=== PATIENT | male | born 1975 | race African-American/Black ===

== ENCOUNTER 2021-07-14 20:40 | Inpatient (IN) | payer SELFPAY ==
[~2021-07-14] VITALS: Ht 172.7 cm; Wt 73.0 kg
[2021-07-14 21:07] LABS: BASO # 0.1 x10^3/uL (0.0-0.2); BASO % 1 % (0-3); EOS # 0.1 x10^3/uL (0.0-0.7); EOS % 1 % (0-3); HEMATOCRIT 43.2 % (39.0-53.0); HEMOGLOBIN 13.7 g/dL (13.0-17.5); LYMPH # 1.6 x10^3/uL (1.0-4.8); LYMPH % 16 % (24-48); MEAN CORPUSCULAR HEMOGLOBIN 24 pg (25-35); MEAN CORPUSCULAR HGB CONC 32 g/dL (31-37); MEAN CORPUSCULAR VOLUME 76 fL (79-100); MONO # 0.9 x10^3/uL (0.0-1.1); MONO % 9 % (0-9); NEUT # 7.5 x10^3/uL (1.8-7.7); NEUT % 74 % (31-73); PLATELET COUNT 238 x10^3/uL (140-400); RED BLOOD COUNT 5.68 x10^6/uL (4.30-5.70); RED CELL DISTRIBUTION WIDTH 15.1 % (11.5-14.5); WHITE BLOOD COUNT 10.2 x10^3/uL (4.0-11.0)
[2021-07-14 21:15] LABS: CALCIUM 9.4 mg/dL (8.5-10.1); CREATININE 1.5 mg/dL (0.7-1.3); GFR 50.6; POTASSIUM 4.2 mmol/L (3.5-5.1)
[2021-07-14 21:21] LABS: ALBUMIN 3.8 g/dL (3.4-5.0); ALBUMIN/GLOBULIN RATIO 0.9 (1.0-1.7); TOTAL BILIRUBIN 0.2 mg/dL (0.2-1.0)
[2021-07-14] MEDS ORDERED: IV NORMAL SALINE 1000ML BAG 1,000 ML IV SCH (21:30)
--- NOTE | 2021-07-14 21:31 | PHYS DOC ---
General Adult EDM: Chief Complaint: NEAR SYNCOPE HPI: HPI: 46-year-old -[place] male past medical history significant for sarcoidosis (takes prednisone and methotrexate daily), presents the ED brought in by EMS after patient had a syncopal episode just prior to arrival while at the [facility]. States he was swimming with his kids for approximately 3 to 4 hours and was about to take a shower when he had sudden onset sweating, shortness of breath, chest pain, attempted to find his inhaler but was stopped when he developed left-sided arm and leg tingling. States his left side gave out and he collapsed to the floor, "it was hard to breath." Is concern for loss of consciousness. Currently in the ED states "I feel like I'm running a race." States he ate barbecue around 3 PM and had 1 beer. States he does not drink alcohol routinely. Denies any IV drug use. Is not a tobacco smoker. Has been vaccinated for COVID. No recent upper respiratory infections. Was diagnosed with sarcoidosis 8 years ago when admitted in [facility] (follows with sugar sampler Dr. Efrain Coyne and Dr. Jeane Pizarro). Is not on any anticoagulants. No history of cardiac arrhythmias, cardiac disease, DVT or PE or syncope. 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 Review of Systems: Review of Systems: Constitutional: Denies fever or chills. [] Eyes: Denies change in visual acuity. [] HENT: Denies nasal congestion or sore throat. [] Respiratory: Denies cough or hemoptysis Cardiovascular: Denies bradycardia or edema. [] GI: Denies abdominal pain, nausea, vomiting, bloody stools or diarrhea. [] : Denies dysuria or hematuria Musculoskeletal: Denies back pain or joint pain. [] Integument: Denies rash or diaphoresis Neurologic: Denies headache or neck pain Endocrine: Denies polyuria or polydipsia. [] Lymphatic: Denies swollen glands. [] Psychiatric: Denies depression or anxiety. [] Heart Score: C/O Chest Pain: Yes HEART Score for Chest Pain: HEART Score for Chest Pain Response (Comments) Value History Slighlty/Non-Suspicious 0 ECG Normal 0 Age >45 - < 65 1 Risk Factors No Risk Factors 0 Troponin < Normal Limit 0 Total 1 Risk Factors: Risk Factors: DM, Current or recent (<one month) smoker, HTN, HLP, family history of CAD, obesity. Risk Scores: Score 0 - 3: 2.5% MACE over next 6 weeks - Discharge Home Score 4 - 6: 20.3% MACE over next 6 weeks - Admit for Clinical Observation Score 7 - 10: 72.7% MACE over next 6 weeks - Early Invasive Strategies Current Medications: Current Medications Medications (Trade) Dose Ordered Sig/Poncho Start Time Stop Time Status Last Admin Dose Admin Diltiazem HCl (Cardizem Iv Push) 20 mg 1X ONCE 07/14/21 21:30 07/14/21 21:31 07/14/21 21:16 20 MG Sodium Chloride 1,000 ml @ 1,000 mls/hr Q1H 07/14/21 21:30 07/14/21 22:29 07/14/21 21:16 1,000 MLS/HR Allergies: Allergies: Allergies Coded Allergies Type Severity Reaction Last Updated Verified No Known Drug Allergies 07/14/21 No Physical Exam: PE: Constitutional: Well developed, well nourished, no acute distress, non-toxic appearance, physically fit male HENT: Normocephalic, atraumatic, slightly dry mucous membranes Eyes: Pupils equal and reactive, EOMI, conjunctiva normal, no discharge. Neck: Normal range of motion, supple, Nexus C-spine criteria are negative: There is no post midline tenderness, the patient is not intoxicated, there is a normal level of alertness, there are no focal neurologic deficits and there are no distracting injuries Cardiovascular: S1/2 present, irregular rhythm/tachycardic Lungs & Thorax: Speaking in full sentences, bilateral equal chest rise, no tachypnea or increased work of breathing Abdomen: soft, no tenderness, Skin: Warm, dry, no erythema, no rash. [] Back: No midline spinal step-offs or tenderness, no CVA tenderness. [] Extremities: No tenderness, no cyanosis, no unilateral lower extremity edema Neurologic: GCS 15, alert and oriented X 3, normal motor function, normal sensory function, no focal deficits noted. [] Psychologic: Affect normal, judgement normal, mood normal. [] Current Patient Data: Labs: Laboratory Tests Test 07/14/21 20:55 White Blood Count 10.2 x10^3/uL (4.0-11.0) Red Blood Count 5.68 x10^6/uL (4.30-5.70) Hemoglobin 13.7 g/dL (13.0-17.5) Hematocrit 43.2 % (39.0-53.0) Mean Corpuscular Volume 76 fL (79-100) L Mean Corpuscular Hemoglobin 24 pg (25-35) L Mean Corpuscular Hemoglobin Concent 32 g/dL (31-37) Red Cell Distribution Width 15.1 % (11.5-14.5) H Platelet Count 238 x10^3/uL (140-400) Neutrophils (%) (Auto) 74 % (31-73) H Lymphocytes (%) (Auto) 16 % (24-48) L Monocytes (%) (Auto) 9 % (0-9) Eosinophils (%) (Auto) 1 % (0-3) Basophils (%) (Auto) 1 % (0-3) Neutrophils # (Auto) 7.5 x10^3/uL (1.8-7.7) Lymphocytes # (Auto) 1.6 x10^3/uL (1.0-4.8) Monocytes # (Auto) 0.9 x10^3/uL (0.0-1.1) Eosinophils # (Auto) 0.1 x10^3/uL (0.0-0.7) Basophils # (Auto) 0.1 x10^3/uL (0.0-0.2) Sodium Level 142 mmol/L (136-145) Potassium Level 4.2 mmol/L (3.5-5.1) Chloride Level 106 mmol/L (98-107) Carbon Dioxide Level 29 mmol/L (21-32) Anion Gap 7 (6-14) Blood Urea Nitrogen 14 mg/dL (8-26) Creatinine 1.5 mg/dL (0.7-1.3) H Estimated GFR (Cockcroft-Gault) 50.6 BUN/Creatinine Ratio 9 (6-20) Glucose Level 102 mg/dL (70-99) H Calcium Level 9.4 mg/dL (8.5-10.1) Magnesium Level Pending Total Bilirubin Pending Aspartate Amino Transferase (AST) Pending Alanine Aminotransferase (ALT) Pending Alkaline Phosphatase Pending Total Protein Pending Albumin Pending Albumin/Globulin Ratio Pending Laboratory Tests 07/14/21 20:55 Laboratory Tests 07/14/21 20:55 Vital Signs: Vital Signs Date Time Temp Pulse Resp B/P (MAP) Pulse Ox O2 Delivery O2 Flow Rate FiO2 07/14/21 21:16 154 103/85 EKG: EK atrial fibrillation in RVR at 145 bpm, no axis deviation, QTC 447, PVCs present, no obvious T wave inversions, ST elevations or ST depressions Radiology/Procedures: Radiology/Procedures: IMAGING REPORT Signed PATIENT: ARLETH GONZALES ACCOUNT: [id number] : 1975 LOCATION: ER AGE: 46 SEX: M EXAM STATUS: PRE ER ORD. PHYSICIAN: JULIANA BROWN DO REASON: cp/soa, near syncope PROCEDURE: CT HEAD AND CERVICAL SPINE WO Exam: CT head and cervical spine without contrast INDICATION: Chest pain, short of air TECHNIQUE: Sequential axial images through the head and cervical spine were obtained without the administration of IV contrast. Exposure: One or more of the following in the visualized dose reduction techniques were utilized for this examination: 1. Automated exposure control 2. Adjustment of the MA and/or KV according to patient size 3. Use of iterative of reconstructive technique Comparisons: None FINDINGS: Head: No focal parenchymal lesion or hemorrhage is identified. There is no midline shift or sulcal effacement. No acute vascular territory infarction is identified. Tanner-white distinction is preserved. The ventricular system is within normal limits without compression hydrocephalus. The basal cisterns are well maintained. The visualized portions of the paranasal sinuses and mastoid air cells are well- pneumatized. No acute fractures. Cervical spine: Vertebral body heights and alignment are well-maintained. Fracture to the cervical spine is not identified. No significant spondylotic change in cervical spine. Linear bandlike scarring at the lung apices. No pleural effusion. IMPRESSION: 1. No acute intracranial abnormality. 2. Negative CT C-spine for acute traumatic injury Electronically signed by: Gregg Cotter MD (07/14/2021 9:44 PM) [facility] DICTATED and SIGNED BY: GREGG COTTER MD DATE: 07/14/[id number] 0 IMAGING REPORT Signed PATIENT: ARLETH GONZALES ACCOUNT: [id number] : 1975 LOCATION: ER AGE: 46 SEX: M EXAM STATUS: PRE ER ORD. PHYSICIAN: JULIANA BROWN DO REASON: cp/soa PROCEDURE: PORTABLE CHEST 1V EXAMINATION: XR CHEST 1V CLINICAL HISTORY: Chest pain, shortness of breath. EXAM DATE/TIME: 07/14/2021 9:13 PM COMPARISON: None FINDINGS: Lines, Tubes, and Devices: None. Cardiomediastinal Silhouette: Normal heart size. Lungs and Pleura: 3.6 cm focal opacity in the right upper lung zone. Bilateral multifocal curvilinear and interstitial opacities. No pleural effusion or pneum othorax. Old calcified granulomatous disease. Bones and Soft Tissues: No acute osseous abnormality. IMPRESSION: Nonacute changes in the bilateral lungs, refer to subsequent CTA chest for further details. Electronically signed by: Gonzalez Cevallos DO (07/14/2021 9:46 PM) [facility] DICTATED and SIGNED BY: GONZALEZ CEVALLOS DO DATE: 07/14/[id number] 0 IMAGING REPORT Signed PATIENT: ARLETH GONZALES ACCOUNT: [id number] : 1975 LOCATION: ER AGE: 46 SEX: M EXAM STATUS: PRE ER ORD. PHYSICIAN: JULIANA BROWN DO REASON: cp/soa, near syncope PROCEDURE: CT ANGIOGRAPHY CHEST Exam: CT of chest with contrast INDICATION: Chest pain, short of air TECHNIQUE: Sequential axial images through the chest obtained following the administration of 90 mL of Isovue-370 IV contrast. Sagittal and coronal reformatted images were reconstructed from the axial data and reviewed. Exposure: One or more of the following in the visualized dose reduction techniques were utilized for this examination: 1. Automated exposure control 2. Adjustment of the MA and/or KV according to patient size 3. Use of iterative of reconstructive technique Comparisons: None FINDINGS: Visualized portions of the thyroid are unremarkable. No enlarged mediastinal ly mph nodes. Heart size is normal. No pericardial effusion. Thoracic aorta has normal course and caliber. Pulmonary artery is not enlarged. No pulmonary embolus identified within the main, lobar or segmental pulmonary arteries. Airways are patent. Cavitary lesions noted at the upper lobes bilaterally with internal discrete mass at the right upper lobe inside one of these cavitary areas. Bronchial wall thickening is also noted. No pneumothorax. No pleural effusion or thickening. Visualized upper abdomen is unremarkable. No suspicious osseous lesions or acute fractures. IMPRESSION: 1. No pulmonary embolus identified within the main, lobar or segmental pulmonary arteries. 2. Cystic areas at the upper lobes bilaterally with internal mass within one of these cysts could represent a fungus ball. Correlate for atypical infectious processes. Electronically signed by: Gregg Cotter MD (07/14/2021 9:50 PM) [facility] DICTATED and SIGNED BY: GREGG COTTER MD DATE: 07/14/21 [id number] 0 Course & Med Decision Making: Course & Med Decision Making Pertinent Labs and Imaging studies reviewed. (See chart for details) Concern for syncope in the setting of new onset atrial fibrillation and rapid ventricular rate. Patient also with renal insufficiency-no prior history of renal disease. CT of the chest did not reveal any pulmonary embolus but does show multiple cystic lesions which could represent fungus ball vs known sarcoidosis. Patient requiring a Cardizem drip. When heart rate is tachycardic patient complains of palpitations described as " I feel like I am running." Will admit for further medical management with cardiology and pulmonology consulted. Patient stable at time of admission and agrees with this plan. I have spoken with the patient and/or caregivers. I have explained the patient's condition, diagnosis and treatment plan based on the information available to me at this time. I have answered the patient's and/or caregivers questions and answered any concerns. The patient and/or caregivers have as good an understanding of the patient's diagnosis, condition and treatment plan as can be expected at this point. The patient has been stabilized within the capability of the emergency department. The patient will be transported for further care and management or will be moved to an observation or inpatient service. I have communicated with the staff or medical practitioner taking over this patient's care. Critical Care: Authorized and Performed by: Juliana Brown DO Total critical care time: approximately 45 minutes Due to a high probability of clinically significant, life threatening deterioration, the patient required my highest level of preparedness to intervene emergently and I personally spent this critical care time directly and personally managing the patient. This critical care time included obtaining a history; examining the patient; pulse oximetry; ventilator management if necessary; ordering and review of studies; arranging urgent treatment with development of a management plan; evaluation of patient's response to treatment; frequent reassessment; discussion with patient/family; and, discussions with other providers. This critical care time was performed to assess and manage the high probability of imminent, life-threatening deterioration that could result in multi-organ failure. It was exclusive of separately billable procedures and treating other patients and teaching time. Please see MDM section and the rest of the note for further information on patient assessment and treatment. Dragon Disclaimer: Dragon Disclaimer: This electronic medical record was generated, in whole or in part, using a voice recognition dictation system. Departure Departure Impression: Primary Impression: Syncope and collapse Additional Impressions: New onset atrial fibrillation Renal insufficiency Sarcoidosis Disposition: ADMITTED INPATIENT Admitting Physician: ANTONIO (Dr. Longo) Condition: STABLE JULIANA BROWN DO Jul 14, 2021 21:31
[2021-07-14 21:41] LABS: AMPHETAMINE/METHAMPHETAMINE NEG (NEG); BARBITURATES NEG (NEG); BENZODIAZEPINES NEG (NEG); CANNABINOIDS POS (NEG); COCAINE NEG (NEG); METHADONE NEG (NEG); OPIATES NEG (NEG); PHENCYCLIDINE NEG (NEG)
[2021-07-14] MEDS ORDERED: CONTRAST GIVEN. MC PRN (21:45)
--- NOTE | 2021-07-14 21:47 | RAD ---
Exam: CT head and cervical spine without contrast INDICATION: Chest pain, short of air TECHNIQUE: Sequential axial images through the head and cervical spine were obtained without the admi nistration of IV contrast. Exposure: One or more of the following in the visualized dose reduction techniques were utilized for this examination: 1. Automated exposure control 2. Adjustment of the MA and/or KV according to patient size 3. Use of iterative of reconstructive technique Comparisons: None FINDINGS: Head: No focal parenchymal lesion or hemorrhage is identified. There is no midline shift or sulcal effaceme nt. No acute vascular territory infarction is identified. Tanner-white distinction is preserved. The ventricular system is within normal limits without compression hydrocephalus. The basal cisterns are well maintained. The visualized portions of the paranasal sinuses and mastoid air cells are well-pneumatized. No acute fractures. Cervical spine: Vertebral body heights and alignment are well-maintained. Fracture to the cervical spine is not identified. No significant spondylotic change in cervical spine. Linear bandlike scarring at the lung apices. No pleural effusion. IMPRESSION: 1. No acute intracranial abnormality. 2. Negative CT C-spine for acute traumatic injury Electronically signed by: Gregg Littlejohn MD (07/14/2021 9:44 PM) [facility]
--- NOTE | 2021-07-14 21:48 | RAD ---
EXAMINATION: XR CHEST 1V CLINICAL HISTORY: Chest pain, shortness of breath. EXAM DATE/TIME: 07/14/2021 9:13 PM COMPARISON: None FINDINGS: Lines, Tubes, and Devices: None. Cardiomediastinal Silhouette: Normal heart size. Lungs and Pleura: 3.6 cm focal opacity in the right upper lung zone. Bilateral multifocal curvilinear and interstitial opacities. No pleural effusion or pneumothorax. Old calcified granulomatous disease . Bones and Soft Tissues: No acute osseous abnormality. IMPRESSION: Nonacute changes in the bilateral lungs, refer to subsequent CTA chest for further details. Electronically signed by: Gonzalez Esquivel DO (07/14/2021 9:46 PM) [facility]
--- NOTE | 2021-07-14 21:53 | RAD ---
Exam: CT of chest with contrast INDICATION: Chest pain, short of air TECHNIQUE: Sequential axial images through the chest obtained following the administration of 90 mL o f Isovue-370 IV contrast. Sagittal and coronal reformatted images were reconstructed from the axial d quentin and reviewed. Exposure: One or more of the following in the visualized dose reduction techniques were utilized for this examination: 1. Automated exposure control 2. Adjustment of the MA and/or KV according to patient size 3. Use of iterative of reconstructive technique Comparisons: None FINDINGS: Visualized portions of the thyroid are unremarkable. No enlarged mediastinal lymph nodes. Heart size is normal. No pericardial effusion. Thoracic aorta has normal course and caliber. Pulmonar y artery is not enlarged. No pulmonary embolus identified within the main, lobar or segmental pulmona ry arteries. Airways are patent. Cavitary lesions noted at the upper lobes bilaterally with internal discrete mass at the right upper lobe inside one of these cavitary areas. Bronchial wall thickening is also noted. No pneumothorax. No pleural effusion or thickening. Visualized upper abdomen is unremarkable. No suspicious osseous lesions or acute fractures. IMPRESSION: 1. No pulmonary embolus identified within the main, lobar or segmental pulmonary arteries. 2. Cystic areas at the upper lobes bilaterally with internal mass within one of these cysts could re present a fungus ball. Correlate for atypical infectious processes. Electronically signed by: Gregg Littlejohn MD (07/14/2021 9:50 PM) [facility]
[2021-07-14] MEDS ORDERED: IOHEXOL 350 MG/ML 100 ML VIAL. IV ONE (22:00)
[2021-07-14] MEDS ORDERED: dilTIAZem HCL 125 MG in IV DEXTROSE 5% 100ML 100 ML IV ONE (23:00)
[2021-07-14 23:30] VITALS: BP 115/65
[2021-07-15] MEDS ORDERED: HEPARIN 25,000UTS/250ML PREMIX 250 ML IV PRN (00:30)
[2021-07-15] MEDS ORDERED: HEPARIN for IV BOLUS 10,000 UNIT/10 ML VIAL. IV PRN (00:30)
[2021-07-15] MEDS: ANTI-COAG MONITOR BY PHARMACY. MC PRN ×2 (01:32→09:34)
[2021-07-15 03:36] VITALS: BP 116/62
--- NOTE | 2021-07-15 04:02 | EKG ---
[facility] [address] [place] [address] Test Date: 2021-07-14 Test Time: 20:46:37 Pat Name: ARLETH GONZALES Department: Room: Gender: M Post Closer: : 1975 Requested By: AMRIT BROWN Order Number: [id number] Reading MD: Measurements Intervals [place] Rate: 145 P: OR: QRS: 61 QRSD: 76 T: 59 QT: 284 QTc: 444 Interpretive Statements IRREGULAR RHYTHM, NO P-WAVE FOUND VENTRICULAR PREMATURE COMPLEX(ES) ABNORMAL ECG RI6.02 No previous ECG available for comparison
[2021-07-15] MEDS ORDERED: dilTIAZem HCL 125 MG in IV DEXTROSE 5% 100ML 100 ML IV PRN (05:30)
[2021-07-15] MEDS ORDERED: PRED20TA PO (05:46)
[2021-07-15] MEDS ORDERED: METH2.5T PO (05:46)
[2021-07-15 07:00] VITALS: BP 107/64
[2021-07-15 09:00] LABS: CHOLESTEROL/HDL RATIO 2.5
--- NOTE | 2021-07-15 10:33 | PDOC1 ---
History and Physical Date of Service: DOS: DATE: 07/15/21 TIME: 10:32 Chief Complaint: Chief Complain: irregular heartbeat History of Present Illness: HPI: 46-year-old -[place] male past medical history significant for sarcoidosis (takes prednisone and methotrexate daily), presents the ED brought in by EMS after patient had a syncopal episode just prior to arrival while at the [facility]. States he was swimming with his kids for approximately 3 to 4 hours and was about to take a shower when he had sudden onset sweating, shortness of breath, chest pain, attempted to find his inhaler but was stopped when he developed left-sided arm and leg tingling. States his left side gave out and he collapsed to the floor, "it was hard to breath." Is concern for loss of consciousness. Currently in the ED states "I feel like I'm running a race." States he ate barbecue around 3 PM and had 1 beer. States he does not drink alcohol routinely. Denies any IV drug use. Is not a tobacco smoker. Has been vaccinated for COVID. No recent upper respiratory infections. Was diagnosed with sarcoidosis 8 years ago when admitted in [facility] (follows with research worker kitchen Dr. Efrain Coyne and Dr. Jeane Pizarro). Is not on any anticoagulants. No history of cardiac arrhythmias, cardiac disease, DVT or PE or syncope. 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 Past Medical/Surgical History: PMH/PSH: Sarcoidosis Allergies: Allergies: Coded Allergies: No Known Drug Allergies (Unverified , 07/14/21) Family History: Family History: no known per patient Social History: Social History: Denies alcohol, tobacco, drug use Current Medications: Current Medications Current Medications Diltiazem HCl (Cardizem Iv Push) 20 mg 1X ONCE IVP Last administered on 07/14/21at 21:16; Start 07/14/21 at 21:30; Stop 07/14/21 at 21:31; Status DC Sodium Chloride 1,000 ml @ 1,000 mls/hr Q1H IV Last administered on 07/14/21at 21:16; Start 07/14/21 at 21:30; Stop 07/14/21 at 22:29; Status DC Iohexol (Omnipaque 350 Mg/ml) 90 ml 1X ONCE IV Last administered on 07/14/21at 21:34; Start 07/14/21 at 22:00; Stop 07/14/21 at 22:01; Status DC Info (CONTRAST GIVEN -- Rx MONITORING) 1 each PRN DAILY PRN MC SEE COMMENTS; Start 07/14/21 at 21:45; Stop 07/16/21 at 21:44 Diltiazem HCl 125 mg/Dextrose 125 ml @ 5 mls/hr 1X ONCE IV Last administered on 07/14/21at 22:38; Start 07/14/21 at 23:00; Stop 07/15/21 at 09:33; Status DC Heparin Sodium/ Dextrose 250 ml @ 8.76 mls/hr CONT PRN IV PER PROTOCOL Last administered on 07/15/21at 01:07; Start 07/15/21 at 00:30 Heparin Sodium (Porcine) (Heparin Sodium) 1,850 unit PRN Q6HRS PRN IV FOR UFH LEVEL LESS THAN 0.2 Last administered on 07/15/21at 08:12; Start 07/15/21 at 00:30 Info (Anti-Coagulation Monitoring By Pharmacy) 1 each PRN DAILY PRN MC PER PROTOCOL Last administered on 07/15/21at 09:34; Start 07/15/21 at 00:45 Diltiazem HCl 125 mg/Dextrose 125 ml @ 5 mls/hr CONT PRN PRN IV AFIB Last administered on 07/15/21at 06:11; Start 07/15/21 at 05:30 Active Scripts Active Reported Methotrexate (Methotrexate Sodium) 2.5 Mg Tablet Unknown Dose PO WEEKLY Prednisone 20 Mg Tablet 1 Tab PO DAILY ROS: Review of Systems Review of System 14pt ROS negative Unless noted in HPI Physical Exam: Vital Signs: Vital Signs Date Time Temp Pulse Resp B/P (MAP) Pulse Ox O2 Delivery O2 Flow Rate FiO2 07/15/21 07:00 98.0 60 18 107/64 (78) 97 Room Air 98.0 Physcial Exam: GEN: No apparent distress. Alert and oriented HEENT: Normal cephalic, atraumatic, external auditory canals are patent EYES: Extraocular muscles are intact, pupil are equally round and reactive to light and accommodation MUSCULOSKELETAL: Well developed , well nourished, good range of motion ENDOCRINE: No thyromegaly was palpated LYMPHATICS: No cervical chain or axillary nodes were noted HEMATOPOIETIC: No bruising NECK: Supple, no JVD, no thyromegaly was noted LUNGS: Clear to auscultation in all lung galvan without rhonchi or wheezing HEART: RRR, S!, S2 present. Peripheral pulses intact, no obvious murmurs noted ABDOMEN: Soft, nontender. Positive bowel sounds, no organomegaly, normal b owel sounds EXTREMITIES: Without clubbing, cyanosis, or edema. Pedal pulses intact. Negative Homans sign NEUROLOGIC: Normal speech and tone. A&O x 3, moves all extremities, no obvious focal deficits PSYCHIATRIC: Normal affect, normal mood. Stable SKIN: No ulcerations or rashes, good skin turgor, no jaundice VASCULAR: Good capillary refill, neurovascular bundle appears to be intact Labs: Labs: Laboratory Tests Test 07/14/21 20:18 07/14/21 20:55 07/14/21 23:50 07/15/21 03:05 Urine Opiates Screen Neg (NEG) Urine Methadone Screen Neg (NEG) Urine Barbiturates Neg (NEG) Urine Phencyclidine Screen Neg (NEG) Urine Amphetamine/Methamphetamine Neg (NEG) Urine Benzodiazepines Screen Neg (NEG) Urine Cocaine Screen Neg (NEG) Urine Cannabinoids Screen Pos (NEG) Urine Ethyl Alcohol Neg (NEG) White Blood Count 10.2 x10^3/uL (4.0-11.0) Red Blood Count 5.68 x10^6/uL (4.30-5.70) Hemoglobin 13.7 g/dL (13.0-17.5) Hematocrit 43.2 % (39.0-53.0) Mean Corpuscular Volume 76 fL (79-100) Mean Corpuscular Hemoglobin 24 pg (25-35) Mean Corpuscular Hemoglobin Concent 32 g/dL (31-37) Red Cell Distribution Width 15.1 % (11.5-14.5) Platelet Count 238 x10^3/uL (140-400) Neutrophils (%) (Auto) 74 % (31-73) Lymphocytes (%) (Auto) 16 % (24-48) Monocytes (%) (Auto) 9 % (0-9) Eosinophils (%) (Auto) 1 % (0-3) Basophils (%) (Auto) 1 % (0-3) Neutrophils # (Auto) 7.5 x10^3/uL (1.8-7.7) Lymphocytes # (Auto) 1.6 x10^3/uL (1.0-4.8) Monocytes # (Auto) 0.9 x10^3/uL (0.0-1.1) Eosinophils # (Auto) 0.1 x10^3/uL (0.0-0.7) Basophils # (Auto) 0.1 x10^3/uL (0.0-0.2) Sodium Level 142 mmol/L (136-145) Potassium Level 4.2 mmol/L (3.5-5.1) Chloride Level 106 mmol/L (98-107) Carbon Dioxide Level 29 mmol/L (21-32) Anion Gap 7 (6-14) Blood Urea Nitrogen 14 mg/dL (8-26) Creatinine 1.5 mg/dL (0.7-1.3) Estimated GFR (Cockcroft-Gault) 50.6 BUN/Creatinine Ratio 9 (6-20) Glucose Level 102 mg/dL (70-99) Calcium Level 9.4 mg/dL (8.5-10.1) Magnesium Level 2.0 mg/dL (1.8-2.4) Total Bilirubin 0.2 mg/dL (0.2-1.0) Aspartate Amino Transf (AST/SGOT) 19 U/L (15-37) Alanine Aminotransferase (ALT/SGPT) 18 U/L (16-63) Alkaline Phosphatase 70 U/L (46-116) Troponin I High Sensitivity 26 ng/L (4-75) 267 ng/L (4-75) 160 ng/L (4-75) AC-Kld-X-Type Natriuretic Peptide 98 pg/mL (0-124) Total Protein 8.0 g/dL (6.4-8.2) Albumin 3.8 g/dL (3.4-5.0) Albumin/Globulin Ratio 0.9 (1.0-1.7) Triglycerides Level 47 mg/dL (0-150) Cholesterol Level 224 mg/dL (0-200) LDL Cholesterol, Calculated 127 mg/dL (0-100) VLDL Cholesterol, Calculated 9 mg/dL (0-40) Non-HDL Cholesterol Calculated 136 mg/dL (0-129) HDL Cholesterol 88 mg/dL (40-60) Cholesterol/HDL Ratio 2.5 Thyroid Stimulating Hormone (TSH) 1.816 uIU/mL (0.358-3.74) Test 07/15/21 07:00 Heparin Anti-Xa Act, Unfractionated 0.13 IU/mL (0.30-0.70) Laboratory Tests Test 07/14/21 20:18 07/14/21 20:55 07/14/21 23:50 07/15/21 03:05 Urine Opiates Screen Neg (NEG) Urine Methadone Screen Neg (NEG) Urine Barbiturates Neg (NEG) Urine Phencyclidine Screen Neg (NEG) Urine Amphetamine/Methamphetamine Neg (NEG) Urine Benzodiazepines Screen Neg (NEG) Urine Cocaine Screen Neg (NEG) Urine Cannabinoids Screen Pos (NEG) Urine Ethyl Alcohol Neg (NEG) White Blood Count 10.2 x10^3/uL (4.0-11.0) Red Blood Count 5.68 x10^6/uL (4.30-5.70) Hemoglobin 13.7 g/dL (13.0-17.5) Hematocrit 43.2 % (39.0-53.0) Mean Corpuscular Volume 76 fL (79-100) Mean Corpuscular Hemoglobin 24 pg (25-35) Mean Corpuscular Hemoglobin Concent 32 g/dL (31-37) Red Cell Distribution Width 15.1 % (11.5-14.5) Platelet Count 238 x10^3/uL (140-400) Neutrophils (%) (Auto) 74 % (31-73) Lymphocytes (%) (Auto) 16 % (24-48) Monocytes (%) (Auto) 9 % (0-9) Eosinophils (%) (Auto) 1 % (0-3) Basophils (%) (Auto) 1 % (0-3) Neutrophils # (Auto) 7.5 x10^3/uL (1.8-7.7) Lymphocytes # (Auto) 1.6 x10^3/uL (1.0-4.8) Monocytes # (Auto) 0.9 x10^3/uL (0.0-1.1) Eosinophils # (Auto) 0.1 x10^3/uL (0.0-0.7) Basophils # (Auto) 0.1 x10^3/uL (0.0-0.2) Sodium Level 142 mmol/L (136-145) Potassium Level 4.2 mmol/L (3.5-5.1) Chloride Level 106 mmol/L (98-107) Carbon Dioxide Level 29 mmol/L (21-32) Anion Gap 7 (6-14) Blood Urea Nitrogen 14 mg/dL (8-26) Creatinine 1.5 mg/dL (0.7-1.3) Estimated GFR (Cockcroft-Gault) 50.6 BUN/Creatinine Ratio 9 (6-20) Glucose Level 102 mg/dL (70-99) Calcium Level 9.4 mg/dL (8.5-10.1) Magnesium Level 2.0 mg/dL (1.8-2.4) Total Bilirubin 0.2 mg/dL (0.2-1.0) Aspartate Amino Transf (AST/SGOT) 19 U/L (15-37) Alanine Aminotransferase (ALT/SGPT) 18 U/L (16-63) Alkaline Phosphatase 70 U/L (46-116) Troponin I High Sensitivity 26 ng/L (4-75) 267 ng/L (4-75) 160 ng/L (4-75) ON-Qyc-W-Type Natriuretic Peptide 98 pg/mL (0-124) Total Protein 8.0 g/dL (6.4-8.2) Albumin 3.8 g/dL (3.4-5.0) Albumin/Globulin Ratio 0.9 (1.0-1.7) Triglycerides Level 47 mg/dL (0-150) Cholesterol Level 224 mg/dL (0-200) LDL Cholesterol, Calculated 127 mg/dL (0-100) VLDL Cholesterol, Calculated 9 mg/dL (0-40) Non-HDL Cholesterol Calculated 136 mg/dL (0-129) HDL Cholesterol 88 mg/dL (40-60) Cholesterol/HDL Ratio 2.5 Thyroid Stimulating Hormone (TSH) 1.816 uIU/mL (0.358-3.74) Test 07/15/21 07:00 Heparin Anti-Xa Act, Unfractionated 0.13 IU/mL (0.30-0.70) Assessment/Plan Assessment/Plan A. fib with RVR. History sarcoidosis -1 day history irregular heartbeat. Currently on vacation at [facility] -Presented emergency room found to be in A. fib with RVR started on Cardizem drip overnight -Transition to metoprolol. Cardizem drip, heparin d/c -Echo results pending. -If does okay with metoprolol dose can discharge this afternoon. -Cardiology already evaluated. -Discussed with bedside RN Justifications for Admission Other Justification PHILIP BISHOP MD Jul 15, 2021 10:33
--- NOTE | 2021-07-15 11:06 | PDOC2 ---
YELENA RAO AIRCRAFT ARMORER 07/15/21 1106: CARDIAC CONSULT DATE OF CONSULT Date of Consult DATE: 07/15/21 TIME: 10:57 REASON FOR CONSULT Reason for Consult: Syncope, AFIB RVR REFERRING PHYSICIAN Referring Physician: Candido SOURCE Source: Chart review, Patient HISTORY OF PRESENT ILLNESS HISTORY OF PRESENT ILLNESS This is a pleasant 46 yo male admitted for complains of passing out. Reports that he was at [place] and just got done swimming and was getting ready to have dinner when he elt SOA and was having palpitations and felt flushed. No chest pain per se but felt like he just ran. No nausea or vomiting. No recent fever or chills. This is the first time this happened to him. No hx of arrhythmias. No cardiac hx. PAST MEDICAL HISTORY Pulmonary: Other (sarcoidosis) Heme/Onc: Other (chronic immunosuppresion) PAST SURGICAL HISTORY Past Surgical History: No pertinent history FAMILY HISTORY Family History: Diabetes SOCIAL HISTORY Smoke: No ALCOHOL: rare Drugs: None Lives: with Family CURRENT MEDICATIONS CURRENT MEDICATIONS Current Medications Medications (Trade) Dose Ordered Sig/Poncho Route PRN Reason Start Time Stop Time Status Last Admin Dose Admin Diltiazem HCl (Cardizem Iv Push) 20 mg 1X ONCE IVP 07/14/21 21:30 07/14/21 21:31 DC 07/14/21 21:16 Sodium Chloride 1,000 ml @ 1,000 mls/hr Q1H IV 07/14/21 21:30 07/14/21 22:29 DC 07/14/21 21:16 Iohexol (Omnipaque 350 Mg/ml) 90 ml 1X ONCE IV 07/14/21 22:00 07/14/21 22:01 DC 07/14/21 21:34 Diltiazem HCl 125 mg/Dextrose 125 ml @ 5 mls/hr 1X ONCE IV 07/14/21 23:00 07/15/21 09:33 DC 07/14/21 22:38 Heparin Sodium/ Dextrose 250 ml @ 8.76 mls/hr CONT PRN IV PER PROTOCOL 07/15/21 00:30 07/15/21 01:07 Heparin Sodium (Porcine) (Heparin Sodium) 1,850 unit PRN Q6HRS PRN IV FOR UFH LEVEL LESS THAN 0.2 07/15/21 00:30 07/15/21 08:12 Info (Anti-Coagulation Monitoring By Pharmacy) 1 each PRN DAILY PRN MC PER PROTOCOL 07/15/21 00:45 07/15/21 09:34 Diltiazem HCl 125 mg/Dextrose 125 ml @ 5 mls/hr CONT PRN PRN IV AFIB 07/15/21 05:30 07/15/21 06:11 ALLERGIES ALLERGIES: Coded Allergies: No Known Drug Allergies (Unverified , 07/14/21) ROS Review of System 14 point ROS evaluated with pertinent positives noted per HPI PHYSICAL EXAM General: Alert, Oriented X3, Cooperative, No acute distress HEENT: Atraumatic, Mucous membr. moist/pink Lungs: Clear to auscultation, Normal air movement Heart: Regular rate (SR), Normal S1, Normal S2, No murmurs Abdomen: Soft, No tenderness Extremities: No cyanosis, No edema Skin: No breakdown, No significant lesion Neuro: Normal speech, Strength at 5/5 X4 ext, Sensation intact Psych/Mental Status: Mood NL MUSCULOSKELETAL: Full range of motion without pain VITALS/I&O VITALS/I&O: Vital Signs Date Time Temp Pulse Resp B/P (MAP) Pulse Ox O2 Delivery O2 Flow Rate FiO2 07/15/21 07:00 98.0 60 18 107/64 (78) 97 Room Air 98.0 I & O 07/14/21 07/14/21 07/15/21 15:00 23:00 07:00 Intake Total 2052 ml Output Total 550 ml Balance 1502 ml LABS Lab: Laboratory Tests Test 07/14/21 20:18 07/14/21 20:55 07/14/21 23:50 07/15/21 03:05 Urine Opiates Screen Neg (NEG) Urine Methadone Screen Neg (NEG) Urine Barbiturates Neg (NEG) Urine Phencyclidine Screen Neg (NEG) Urine Amphetamine/Methamphetamine Neg (NEG) Urine Benzodiazepines Screen Neg (NEG) Urine Cocaine Screen Neg (NEG) Urine Cannabinoids Screen Pos (NEG) Urine Ethyl Alcohol Neg (NEG) White Blood Count 10.2 x10^3/uL (4.0-11.0) Red Blood Count 5.68 x10^6/uL (4.30-5.70) Hemoglobin 13.7 g/dL (13.0-17.5) Hematocrit 43.2 % (39.0-53.0) Mean Corpuscular Volume 76 fL (79-100) L Mean Corpuscular Hemoglobin 24 pg (25-35) L Mean Corpuscular Hemoglobin Concent 32 g/dL (31-37) Red Cell Distribution Width 15.1 % (11.5-14.5) H Platelet Count 238 x10^3/uL (140-400) Neutrophils (%) (Auto) 74 % (31-73) H Lymphocytes (%) (Auto) 16 % (24-48) L Monocytes (%) (Auto) 9 % (0-9) Eosinophils (%) (Auto) 1 % (0-3) Basophils (%) (Auto) 1 % (0-3) Neutrophils # (Auto) 7.5 x10^3/uL (1.8-7.7) Lymphocytes # (Auto) 1.6 x10^3/uL (1.0-4.8) Monocytes # (Auto) 0.9 x10^3/uL (0.0-1.1) Eosinophils # (Auto) 0.1 x10^3/uL (0.0-0.7) Basophils # (Auto) 0.1 x10^3/uL (0.0-0.2) Sodium Level 142 mmol/L (136-145) Potassium Level 4.2 mmol/L (3.5-5.1) Chloride Level 106 mmol/L (98-107) Carbon Dioxide Level 29 mmol/L (21-32) Anion Gap 7 (6-14) Blood Urea Nitrogen 14 mg/dL (8-26) Creatinine 1.5 mg/dL (0.7-1.3) H Estimated GFR (Cockcroft-Gault) 50.6 BUN/Creatinine Ratio 9 (6-20) Glucose Level 102 mg/dL (70-99) H Calcium Level 9.4 mg/dL (8.5-10.1) Magnesium Level 2.0 mg/dL (1.8-2.4) Total Bilirubin 0.2 mg/dL (0.2-1.0) Aspartate Amino Transferase (AST) 19 U/L (15-37) Alanine Aminotransferase (ALT) 18 U/L (16-63) Alkaline Phosphatase 70 U/L (46-116) Troponin I High Sensitivity 26 ng/L (4-75) 267 ng/L (4-75) H 160 ng/L (4-75) H XO-Nxp-C-Type Natriuretic Peptide 98 pg/mL (0-124) Total Protein 8.0 g/dL (6.4-8.2) Albumin 3.8 g/dL (3.4-5.0) Albumin/Globulin Ratio 0.9 (1.0-1.7) L Triglycerides Level 47 mg/dL (0-150) Cholesterol Level 224 mg/dL (0-200) H LDL Cholesterol, Calculated 127 mg/dL (0-100) H VLDL Cholesterol, Calculated 9 mg/dL (0-40) Non-HDL Cholesterol Calculated 136 mg/dL (0-129) H HDL Cholesterol 88 mg/dL (40-60) H Cholesterol/HDL Ratio 2.5 Thyroid Stimulating Hormone (TSH) 1.816 uIU/mL (0.358-3.74) Test 07/15/21 07:00 Heparin Anti-Xa Act, Unfractionated 0.13 IU/mL (0.30-0.70) L Laboratory Tests 07/14/21 20:55 Laboratory Tests 07/14/21 20:55 ASSESSMENT/PLAN ASSESSMENT/PLAN 1. AFIB RVR: new onset, converted to SR 2. Syncope with nontramuatic fall: likely from #1 3. Hx of sarcoidosis 4. Chronic immunosuppresion 5. Mild troponin elevation: demand mediated type 2 6. Steroid induced hyperglycemia vs new DM: he does have family hx of DM. Recommendations 1. TTE, A1C 2. ASA for now for stroke prevention. MCOT to ascertain AFIB burden and med adjustment 3. Consider for antiarrhythmics pending TTE 4. Will consider for outpt treadmill MPI. 5. Anticipate DC today. Start on toprol.low dose. Follow up in office. August 28 at 1015 AM YELENA HERNANDEZ MD 07/16/21 0730: CARDIAC CONSULT ASSESSMENT/PLAN ASSESSMENT/PLAN Patient seen and examined 07/15/2021. Agree with GEOPHYSICAL PROSPECTOR's assessment and plan. Atrial fibrillation, new onset, presently back in sinus rhythm. Syncope could be vasovagal but sick sinus syndrome needs to be ruled out. Slight troponin elevation probably demand ischemia. Agree with outpatient event monitor and stress test. Check 2D echo to assess LV systolic function. Thank you for your consultation YELENA RAO APRN Jul 15, 2021 11:06 YELENA HERNANDEZ MD Jul 16, 2021 07:30
[2021-07-15 11:16] LABS: CREATININE 1.1 mg/dL (0.7-1.3); GFR 87.6; POTASSIUM 3.6 mmol/L (3.5-5.1)
[2021-07-15 11:20] VITALS: BP 114/78
[2021-07-15] MEDS ORDERED: METOPROLOL SUCC 24HR ER 25 MG TAB.ER.24H. PO SCH (12:00)
[2021-07-15] MEDS ORDERED: ASPIRIN ENTERIC COATED 81 MG TABLET.DR. PO SCH (12:00)
--- NOTE | 2021-07-15 12:15 | CONS ---
DATE OF CONSULTATION: 07/15/2021 ATTENDING PHYSICIAN: Chad Longo DO REASON FOR CONSULTATION: Abnormal CT chest, sarcoidosis. HISTORY OF PRESENT ILLNESS: The patient is a 46-year-old male who has 15 years of tobacco use. He was diagnosed with sarcoidosis in 2013. He said he had a bronchoscopy and also had a skin biopsy. He has been on prednisone for 8 years and methotrexate for 6 years. He follows tong carrier in [place]. He said he had several scans done. He was brought into the hospital after he had a syncopal episode. He had some chest pain as well. The patient was noted to be in atrial fibrillation with rapid ventricular response. Currently, he is having an echocardiogram. I saw the patient in the echocardiogram room. The patient says he has an occasional cough. No fever, no chills. He had 1 episode of hemoptysis yesterday, but has not reoccurred. He says that he has been aware of the cavitary lesions by his tong carrier. He was not so sure about possibility of a fungus ball within the cavitary lesion. No history of deep vein thrombosis or pulmonary embolism. The patient underwent CT chest, which was reviewed by me. There was no old CT available. There was no evidence of pulmonary embolism. The patient has a cavitary lesion in the right upper lobe with a foreign body, likely a fungus ball. He also has cavitary lesion in the left upper lobe as well, which is likely an emphysematous bleb. The patient has some bronchiectasis in the right upper lobe. Consultation requested for further evaluation and management. PAST MEDICAL HISTORY: Sarcoidosis, diagnosed in 2013. He has been on prednisone and methotrexate for the last 6-8 years. Minimal tobacco history. PAST SURGICAL HISTORY: No recent surgeries. ALLERGIES: None. MEDICATIONS: Reviewed as listed in the MRAD. SYSTEMS REVIEW: A 12-point review of system obtained. Pertinent positives discussed in my present illness, otherwise noncontributory. All systems that were negative were reviewed as well. SOCIAL HISTORY: He smoked for 15 years before quitting. FAMILY HISTORY: Noncontributory to lungs. PHYSICAL EXAMINATION: VITAL SIGNS: Reviewed. Afebrile, blood pressure stable, pulse ox 97% on room air. NECK: Supple. LUNGS: Clear. CARDIOVASCULAR: With a regular rate. ABDOMEN: Soft, nontender. EXTREMITIES: With no pitting edema. LABORATORY DATA: Reviewed. White cell count ____, hemoglobin 13.7, platelets are 238. BUN and creatinine 14 and 1.5. IMPRESSION: 1. Abnormal CT chest with a cavitary lesion in the right upper lobe with a foreign body within the cavity, suspicious for fungus ball. He also has bronchiectasis in the right upper lobe. He also has cystic lesion in the left upper lobe. 2. This is a patient who has known sarcoidosis and this was diagnosed in 2013. He has been on methotrexate for 6 years and prednisone for 8 years. He is certainly at risk for opportunistic infections due to being on immunosuppressive agents. Fungus ball would be likely etiology. Another gram-negative infections would be in the differential diagnosis as well. He is clinically asymptomatic. He has been regularly followed by tong carrier in [place]. 3. Atrial fibrillation with rapid ventricular response, resulting in syncopal episode. No evidence of pulmonary embolism. 4. Minimal tobacco history. RECOMMENDATIONS: 1. From a pulmonary standpoint, he is stable to be discharged. I have recommended that he should have follow up with his tong carrier and they can compare his old scan and consider any additional diagnostic workup such as bronchoscopy. 2. The patient to continue with his prednisone and methotrexate. 3. Currently, he is in sinus rhythm. 4. Follow Cardiology recommendations. Follow the results of the echo. 5. From a pulmonary standpoint, he could be discharged and follow up with his tong carrier. 6. Discussed with MOE. KIMBERLY/MARILIA/RUBEN DR: Alberto TID: [id number]
--- NOTE | 2021-07-15 12:32 | EKG ---
[facility] [address] [place] [address] Test Date: 2021-07-15 Test Time: 12:29:22 Pat Name: ARLETH GONZALES Department: Room: 202 Gender: M Flour Broker: KARI : 1975 Requested By: YELENA RAO Order Number: [id number] Reading MD: Measurements Intervals Presto Rate: 60 P: 72 AK: 150 QRS: 50 QRSD: 82 T: 59 QT: 384 QTc: 384 Interpretive Statements SINUS RHYTHM NORMAL ECG RI6.02 Compared to ECG 07/14/2021 20:46:37 No significant changes
[2021-07-15] MEDS ORDERED: ASPI-886 PO (12:36)
[2021-07-15] MEDS ORDERED: METO-239 PO (12:36)
[2021-07-15 13:00] VITALS: BP 122/74
[2021-07-16 02:17] LABS: HEMOGLOBIN A1C 5.7 % (4.8-5.6)
--- NOTE | 2021-07-16 07:51 | CARD ---
MR#: [id number] Date of Study: 07/15/2021 Ordering Physician: YELENA RAO, Referring Physician: YELENA RAO Tech: Estelle Sorensen [facility] APPROVED REPORT EXAM: Two-dimensional and M-mode echocardiogram with Doppler and color Doppler. Other Information Quality : AverageHR: 66bpm Rhythm : NSR INDICATION Atrial Fibrillation 2D DIMENSIONS RVDd3.3 (2.9-3.5cm)Left Atrium(2D)3.1 (1.6-4.0cm) IVSd1.1 (0.7-1.1cm)Aortic Root(2D)3.3 (2.0-3.7cm) LVDd4.3 (3.9-5.9cm)LVOT Diameter2.1 (1.8-2.4cm) PWd1.1 (0.7-1.1cm)LVDs2.8 (2.5-4.0cm) FS (%) 35.1 %SV53.1 ml LVEF(%)64.7 (>50%) Aortic Valve AoV Peak Derrick.121.9cm/sAoV VTI24.9cm AO Peak GR.5.9mmHgLVOT Peak Derrick.114.4cm/s AO Mean GR.3mmHgAVA (VMAX)3.39cm2 Mitral Valve MV E Puirfinc40.1cm/sMV DECEL [id number] MV A Vtzaxuht18.2cm/sE/A Ratio1.4 Pulmonary Valve PV Peak Gqvjunpq19.2cm/s LEFT VENTRICLE The left ventricle is normal size. There is mild concentric left ventricular hypertrophy. The left ve ntricular systolic function is normal. The ejection fraction is 60%. There is normal LV segmental wal l motion. RIGHT VENTRICLE The right ventricle is normal size. There is normal right ventricular wall thickness. The right ventr icular systolic function is normal. ATRIA The left atrium size is normal. The right atrium size is normal. The interatrial septum is intact wit h no evidence for an atrial septal defect or patent foramen ovale as noted on 2-D or Doppler imaging. AORTIC VALVE The aortic valve is normal in structure and function. Doppler and Color Flow revealed no significant aortic regurgitation. There is no significant aortic valvular stenosis. MITRAL VALVE The mitral valve is normal in structure and function. There is no evidence of mitral valve prolapse. There is no mitral valve stenosis. Doppler and Color Flow revealed no mitral valve regurgitation note d. TRICUSPID VALVE The tricuspid valve is normal in structure and function. Doppler and Color Flow revealed no tricuspid valve regurgitation noted. There is no tricuspid valve stenosis. PULMONIC VALVE The pulmonary valve is normal in structure and function. Doppler and Color Flow revealed no pulmonic valvular regurgitation. GREAT VESSELS The aortic root is normal in size. The ascending aorta is normal in size. The IVC is normal in size a nd collapses >50% with inspiration. PERICARDIAL EFFUSION There is no evidence of significant pericardial effusion. Critical Notification Critical Value: No <Conclusion> The left ventricular systolic function is normal. The ejection fraction is 60%. There is normal LV segmental wall motion. There is no evidence of significant pericardial effusion. Signed by : Luis Rodriguez, Electronically Approved : 07/16/2021 07:51:30
[2021-07-16] MEDS ORDERED: ASPIRIN ENTERIC COATED 81 MG TABLET.DR. PO SCH (08:00)
--- NOTE | 2021-07-18 12:17 | PDOC3 ---
[facility]-Discharge Summary Date of Admission: Date of Admission: Jul 15, 2021 Date of Discharge: Date of Discharge: Jul 15, 2021 Admission Diagnosis: Admitting Diagnosis: chest pain Consults: Consults: Cardiology Hospital Course: Hospital Course: 46-year-old -[place] male past medical history significant for sarcoidosis (takes prednisone and methotrexate daily), presents the ED brought in by EMS after patient had a syncopal episode just prior to arrival while at the [facility]. States he was swimming with his kids for approximately 3 to 4 hours and was about to take a shower when he had sudden onset sweating, shortness of breath, chest pain, attempted to find his inhaler but was stopped when he developed left-sided arm and leg tingling. States his left side gave out and he collapsed to the floor, "it was hard to breath." Is concern for loss of consciousness. Currently in the ED states "I feel like I'm running a race." States he ate barbecue around 3 PM and had 1 beer. States he does not drink alcohol routinely. Denies any IV drug use. Is not a tobacco smoker. Has been vaccinated for COVID. No recent upper respiratory infections. Was diagnosed with sarcoidosis 8 years ago when admitted in [facility] (follows with staff internist office based only Dr. Efrain Coyne and Dr. Jeane Pizarro). Is not on any anticoagulants. No history of cardiac arrhythmias, cardiac disease, DVT or PE or syncope. 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 Patient was evaluated by cardiology. Started on metoprolol. He was feeling much better when reevaluated in the afternoon. Okay to discharge home. Greater than 30 minutes spent on discharge. Disposition: Disposition/Orders: D/C to Home Activity: Activity: Resume previous activity Diet: Diet: Regular Medications: Home Meds Active Scripts Metoprolol Succinate (METOPROLOL SUCCINATE ( XL )) 25 Mg Tab.er.24h, 25 MG PO DAILY for afib for 60 Days, #60 TAB.SR Prov:PHILIP BISHOP MD 07/15/21 Aspirin (ASPIRIN EC) 81 Mg Tablet., 81 MG PO DAILYWBKFT for cad for 60 Days, #60 TAB.SR Prov:PHILIP BISHOP MD 07/15/21 Reported Medications Methotrexate Sodium (METHOTREXATE) 2.5 Mg Tablet, PO WEEKLY for sarcoidosis, #32 TAB 2 Refills 07/15/21 Prednisone (PREDNISONE) 20 Mg Tablet, 1 TAB PO DAILY for sarcoidosis, #5 TAB 07/15/21 Scheduled Aspirin (Aspirin Ec), 81 MG PO DAILYWBKFT Methotrexate Sodium (Methotrexate), Unknown Dose PO WEEKLY, (Reported) Metoprolol Succinate (Metoprolol Succinate ( Xl )), 25 MG PO DAILY Prednisone (Prednisone), 1 TAB PO DAILY, (Reported) Justicifation of Admission Dx: Justifications for Admission: Justification of Admission Dx: Yes (chest pain) PHILIP BISHOP MD Jul 18, 2021 12:17
== END 2021-07-15 13:45 | disposition home or self-care (01) | DRG 310 ==
LOC: ER 20:40 → 2 NORTH 22:33
PROVIDERS: ADMIT Internal Medicine; ATTEND Internal Medicine
DX: I48.91 Unspecified atrial fibrillation (principal); D86.9 Sarcoidosis, unspecified; J43.9 Emphysema, unspecified; N28.9 Disorder of kidney and ureter, unspecified; R73.9 Hyperglycemia, unspecified; T38.0X5A Adverse effect of glucocorticoids and synthetic analogues, initial encounter; Z83.3 Family history of diabetes mellitus; Z87.891 Personal history of nicotine dependence; Z79.899 Other long term (current) drug therapy; R77.8 Other specified abnormalities of plasma proteins; Y92.89 Other specified places as the place of occurrence of the external cause
CPT/HCPCS: 36415; 70450; 71045; 71275; 72125; 80048; 80053; 80061; 80307; 83036; 83735; 83880; 84443; 84484; 85025; 85520; 93005; 93306; 96361; 96365; 96376; J1644; J3490; J7030; J7060; Q9967; 99291-25; C8929; G0378